=== PATIENT | male | born 1945 | race Caucasian/White ===

== ENCOUNTER → 2016-10-28 | Outpatient (CLI) | payer MEDICARE, BC ==
[~2016-10-28] MED LIST: ASPIRIN81 MG PO; AUGMENTIN PO; DARVOCET-N 1001 TAB PO; DORZOLAMIDE HCL10 ML OU; EYEDROPS; HYDROCHLOROTHIA25 MG PO; LATANOPROST2.5 ML OU; LIPITOR PO; LUTEIN-ZEAXANT1 EACH PO; PLAVIX PO; [UNRECOGNIZED DRUG - REMARK]
--- NOTE | ~2016-10-28 | CT4 ---
[facility] A Service of [facility] RADIOLOGY TEXT RESULTS PATIENT: JAVY MENDOZA LOCATION: [facility] : 41 UNIT #: [id number] AGE: [address]: ALEXY NORRIS APRN SEX: M ORDER DR: [id number] [address] [address] [id number] MR#: [id number] #: [id number] NAME: JAVY MENDOZA. : 1945 SEX: M STUDY DATE/TIME: 10/28/2016 8:46 UNIT: [facility] ROOM: STUDY DESCRIPTION: CT Abd and Pelv Wo Cont Attending Physician: Alexy Norris Aprn Referring Physician: Alexy Norris Aprn Ordering Physician: Alexy Norris Aprn Primary Care Physician: Kirstie Kee M.D. MEDICAL IMAGING REPORT This report is preliminary unless electronic signature is present. EXAM CT abdomen and pelvis without contrast. INDICATIONS Generalized abdominal pain. Left lower quadrant and right lower quadrant pain for 3 weeks. Rectal pressure. Nausea. History of diverticulitis. TECHNIQUE CT of the abdomen and pelvis without contrast. Coronal and sagittal reconstructions were obtained. This CT exam was performed with one or more of the following radiation dose reduction techniques: automatic exposure control, adjustment of mA and/or kV according to patient size, and iterative reconstruction. COMPARISON CT abdomen and pelvis dated 11/10/2015. FINDINGS ABDOMEN: There is focal inflammation of the sigmoid colon and area of sigmoid colon diverticula indicative of diverticulitis. Extensive inflammation is identified in the sigmoid mesentery as well as a 3.6 x 3.4 x 3.9 cm abscess. There is also some phlegmonous along on the undersurface of the sigmoid colon. This abuts the superior wall of the urinary bladder. There is some associated bladder wall thickening, which is likely reactive. No evidence of a colovesicular fistula at this time. There are some small lymph nodes in the sigmoid mesentery; however, these are not considered to be pathologically enlarged. There is background hepatic steatosis. There is a small cyst near the gallbladder fossa. Gallbladder is not distended. The pancreas is atrophic. Spleen and adrenal glands are normal. There are multiple exophytic lesions off the kidneys compatible with cysts. There is generalized renal cortical atrophy. No hydronephrosis. A 2.[address] [facility] A Service of [facility] RADIOLOGY TEXT RESULTS PATIENT: JAVY MENDOZA LOCATION: [facility] : 41 UNIT #: [id number] AGE: [address]: ALEXY NORRIS GEOPHYSICAL E LOGGER SEX: M ORDER DR: hyperdense mass off the mid left kidney is unchanged from 11/10/2015 indicative of a benign hyperdense/proteinaceous cyst. There is a bilobed infrarenal abdominal aortic aneurysm measuring up to 4.4 cm. This is unchanged from the 11/10/2015 exam. PELVIS: There has been prior inguinal hernia repair. Mild wall thickening in the bladder is likely reactive due to the diverticulitis. No acute osseous abnormalities. IMPRESSION 1. Acute sigmoid colon diverticulitis. There is a 3.9 cm abscess in the sigmoid mesentery. 2. Phlegmonous material extending from the undersurface of the sigmoid colon and abutting the superior wall of the bladder. This results in some bladder wall thickening. This bladder wall thickening is likely reactive. No evidence of a fistula at this point. 3. Hepatic steatosis. 4. Indeterminate exophytic lesion off the mid left kidney is unchanged from 11/10/2015 suggesting a benign etiology. This can be continued to be followed. This is categorized as a Bosniak 3F lesion on the 11/10/2015 comparison. 5. 4.4 cm infrarenal abdominal aneurysm. This finding was called to the physician's office at 10:30 on 10/28/2016. STAT * RESULT Dictated by... Sukh Hood M.D. THIS IS AN ELECTRONICALLY VERIFIED REPORT Sukh Hood M.D. at 10/28/2016 2:36 PM RPC/amaris TD: 10/28/2016 11:08 JOB #: [id number] MEDICAL IMAGING REPORT
== END | disposition home or self-care (01) ==
LOC: SCT 08:33
DX: K57.90 Diverticulosis of intestine, part unspecified, without perforation or abscess without bleeding (principal); R10.31 Right lower quadrant pain; R10.32 Left lower quadrant pain; R19.8 Other specified symptoms and signs involving the digestive system and abdomen; K57.20 Diverticulitis of large intestine with perforation and abscess without bleeding; I71.4 Abdominal aortic aneurysm, without rupture; K76.0 Fatty (change of) liver, not elsewhere classified; N28.89 Other specified disorders of kidney and ureter
CPT/HCPCS: 74176